=== PATIENT | female | born 1960 | race Caucasian/White ===

== ENCOUNTER 2016-12-17 10:37 | Inpatient (IN) | payer MEDICARE, MEDICAID ==
[~2016-12-17] VITALS: Ht 160 cm; Wt 51.0 kg
[~2016-12-17 10:37] MED LIST: AMOXICILLIN500 MG PO; ANTIVERT12.5 MG PO; ASPIRIN325 M1 OR; AUGMENTIN875 MG OR; AZITHROMYCIN250 MG PO; BENZTROPINE0.5 MG PO; CHILD'S ASA81 MG OR; CIPRO500 MG OR; FLUOXETINE20 MG PO; GABAPENTIN100 MG PO; GABAPENTIN300 MG PO; HALOPERIDOL5 MG PO; INVEGA3 MG PO; INVEGA6 MG PO; MEDDOSEPAK PO; NAPROSYN500 MG OR; NO HOME MEDS; PAXIL30 MG PO; PERCOCET 5/325M1 TAB OR; PROAIR HFA IN; PROTONIX40 MG OR; PROVENTIL HFA IN; PROZAC20 MG PO; PYRIDIUM100 MG OR; REGLAN5 MG OR; TRAZODONE100 MG PO; TRAZODONE50 MG PO; TRILEPTAL150 M1 PO; ULTRAM50 M1 PO; ULTRAM50 MG OR; VICOPROFEN PO
--- NOTE | 2016-12-17 10:40 | NUR ---
PT TO ROOM 12 VIA WHEELCHAIR.
[2016-12-17] MEDS ORDERED: TRAZODONE50 MG PO (11:30)
[2016-12-17] MEDS ORDERED: Levaquin PO (11:31)
[2016-12-17] MEDS ORDERED: SEROQUEL25 MG PO (11:31)
[2016-12-17] MEDS ORDERED: GABAPENTIN100 MG PO (11:32)
[2016-12-17] MEDS ORDERED: DUONEB IN (11:34)
[2016-12-17] MEDS ORDERED: LACTULOSE PO (11:35)
[2016-12-17] MEDS ORDERED: SYMBICORT 80-4.5MCG IN (11:36)
[2016-12-17] MEDS ORDERED: FLUOXETINE10 M2 PO (11:37)
--- NOTE | 2016-12-17 11:37 | NUR ---
PT ARRIVES TO ROOM, NOW WITH IV ESTABLISHED, BLOOD DRAWN, EKG DONE.
[2016-12-17] MEDS ORDERED: MIRTAZAPINE15 MG PO (11:38)
[2016-12-17] MEDS ORDERED: BENZTROPINE0.5 MG PO (11:39)
[2016-12-17 11:44] LABS: HEMATOCRIT 37.8 % (37.0-47.0); HEMOGLOBIN 12.9 g/dl (12.0-16.0); IMMATURE GRANULOCYTES 0.5 % (0.0-1.0); MEAN CELL VOLUME 95.2 fL CALC (80.0-100.0); MEAN CORPUSCULAR HGB 32.5 pG CALC (26.0-32.0); MEAN CORPUSCULAR HGB CONC 34.1 g/L CALC (32.0-36.0); NEUT# 7.56 thou/uL (2.00-7.15); RED BLOOD COUNT 3.97 mill/uL (4.20-5.60)
[2016-12-17 11:58] LABS: ALBUMIN 3.7 g/dL (3.2-5.0); ALKALINE PHOSPHATASE 95 u/l (38-126); ANION GAP 14 (6-22 (CALC)); BILIRUBIN, TOTAL 0.6 mg/dL (0.0-1.4); BUN 8 mg/dL (7-17); BUN/CREATININE RATIO 14 (12-20 (CALC)); CALCIUM 9.1 mg/dL (8.4-10.2); CARBON DIOXIDE 24 mmol/l (22-30); CHLORIDE 103 mmol/l (95-108); CREATININE 0.6 mg/dL (0.5-1.0); GFR > 60 ML/MIN (>=60 (CALC)); GFR FOR AFR.AMER. > 60 ML/MIN (>=60 (CALC)); GLUCOSE 89 mg/dL (65-105); POTASSIUM 3.8 mmol/l (3.5-5.1); SGOT/AST 23 u/l (14-36); SGPT/ALT 20 u/l (9-52); SODIUM 137 mmol/l (137-146); TOTAL PROTEIN 7.1 g/dL (6.3-8.2)
[2016-12-17 11:59] LABS: INFLUENZA A NONE DETECTED (NONE DETECT); INFLUENZA B NONE DETECTED (NONE DETECT)
[2016-12-17 11:59] LABS: PROTHROMBIN TIME 10.6 SECONDS (9.0-12.5)
[2016-12-17 12:09] LABS: MYOGLOBIN 38 ng/mL (0 - 62)
[2016-12-17 14:22] LABS: URINE BILIRUBIN - DIPSTICK NEGATIVE (NEGATIVE); URINE BLOOD DIPSTICK NEGATIVE (NEGATIVE); URINE CLARITY CLEAR; URINE COLOR YELLOW; URINE GLUCOSE - DIPSTICK NEGATIVE (NEGATIVE); URINE KETONE TRACE mg/dL (NEGATIVE); URINE LEUK ESTERASE NEGATIVE (NEGATIVE); URINE NITRITE - DIPSTICK NEGATIVE (Negative); URINE PH 5.5 (4.5-8.0); URINE PROTEIN - DIPSTICK TRACE mg/dL (NEG-TRACE)
--- NOTE | 2016-12-17 14:42 | NUR ---
REPORT CALLED TO CHELSEY ARZOLA, PT TO FLOOR SOON.
--- NOTE | 2016-12-17 15:15 | NUR ---
PT ARRIVED TO FLOOR AT THIS TIME VIA WC ACCOMPANIED BY RADHA RN; PT AMB TO SCALE AND BED WITH STEADY; PT ORIENTED TO ROOM AND CALL LIGHT SYSTEM; PT DENIES ANY PAIN; EXERTIONAL SOB NOTED; NON-PRODUCTIVE COUGH NOTED; ASSESSMENT COMPLETED; IVF INFUSING TO #20 TO LAC; IV SITE APPEARS HEALTHY; O2 NC IN PLACE; PT DENIES ANY OTHER NEEDS AT THIS TIME; CALL LIGHT WITHIN REACH; WILL CONTINUE TO MONITOR
--- NOTE | 2016-12-17 15:20 | NUR ---
PT TAKEN TO ROOM 272 WITHOUT INCIDENT.
[2016-12-17 15:21] VITALS: BP 106/67
[2016-12-17 18:35] LABS: BARBITURATES NEGATIVE (NEGATIVE); COCAINE NEGATIVE (NEGATIVE); METHADONE NEGATIVE (NEGATIVE); OXCYCODONE NEGATIVE (NEGATIVE); TETRAHYDROCANNABIONOL POSITIVE (NEGATIVE); TRICYLIC ANTIDEPRESSANTS NEGATIVE (NEGATIVE)
[2016-12-17 19:26] VITALS: BP 112/60
--- NOTE | 2016-12-17 19:30 | NUR ---
PATIENT RESTING IN BED ON FIRST ROUNDS-AWAKE ALERT AND ORIENTEDX3 WITH NO COMPLAINTS AT THIS TIME. PATIENT WITH NON-PRODUCTIVE COUGH/ IV SITE TO LEFT AC WITH IVF 1/2NS PATENT AND INFUSING AT 125CC/HR. SITE APPEARS HEALTHY AT THIS TIME. PATIENT UP TO THE BR TO VOID HUDSON URINE. PATIENT WITH O2 VIA NASAL CANNULA IN PLACE AT 2LPM. SAFETY PRECAUTIONS REINFORCED. CALL LIGHT IN REACH. WILL CONT TO MONITOR.
[2016-12-17 23:55] VITALS: BP 108/58
--- NOTE | 2016-12-18 01:29 | NUR ---
PATIENT APPEARS SLEEPING AT THIS TIME WITH O2 VIA NASAL CANNULA IN PLACE. IVF INFUSING AT 125CC/HR. CALL LIGHT IN REACH. WILL CONT TO MONITOR.
--- NOTE | 2016-12-18 04:02 | NUR ---
APPEARS SLEEPING AT THIS TIME WITH EYES CLOSED. CALL LIGHT IN REACH. WILL CONT TO MONITOR.
[2016-12-18 04:28] VITALS: BP 109/61
[2016-12-18 05:53] LABS: HEMOGLOBIN 11.5 g/dl (12.0-16.0); IMMATURE GRANULOCYTES 0.6 % (0.0-1.0); MEAN CELL VOLUME 95.9 fL CALC (80.0-100.0); MEAN CORPUSCULAR HGB 33.4 pG CALC (26.0-32.0); MEAN CORPUSCULAR HGB CONC 34.8 g/L CALC (32.0-36.0); NEUT# 6.62 thou/uL (2.00-7.15); RED BLOOD COUNT 3.44 mill/uL (4.20-5.60); RED CELL DISTRI WIDTH 13.8 % (11.5-15.5)
[2016-12-18 06:27] LABS: ANION GAP 11 (6-22 (CALC)); BUN 8 mg/dL (7-17); BUN/CREATININE RATIO 13 (12-20 (CALC)); CALCIUM 8.3 mg/dL (8.4-10.2); CARBON DIOXIDE 23 mmol/l (22-30); CHLORIDE 106 mmol/l (95-108); CREATININE 0.6 mg/dL (0.5-1.0); GFR > 60 ML/MIN (>=60 (CALC)); GFR FOR AFR.AMER. > 60 ML/MIN (>=60 (CALC)); GLUCOSE 78 mg/dL (65-105); SODIUM 135 mmol/l (137-146)
--- NOTE | 2016-12-18 07:00 | NUR ---
DR. GALVEZ IN TO SEE PT; PLAN OF CARE DISCUSSED
[2016-12-18 08:54] VITALS: BP 100/64
--- NOTE | 2016-12-18 09:24 | NUR ---
PT TO RADIOLOGY VIA WC ACCOMPANIED BY STAFF
--- NOTE | 2016-12-18 09:45 | NUR ---
PT RETURN FROM RADIOLOGY VIA WC ACCOMPANIED BY STAFF; TO BED WITHOUT DIFFICULTY; NO COMPLAINTS VOICED; CALL RICHARDS WITHIN REACH; WILL CONTINUE TO MONITOR
--- NOTE | 2016-12-18 10:26 | NUR ---
PT TO SHOWER; NO COMPLAINTS VOICED; CALL RICHARDS WITHIN REACH; WILL CONTINUE TO MONITOR
[2016-12-18 12:24] VITALS: BP 115/75
--- NOTE | 2016-12-18 13:18 | NUR ---
PT WATCHING TV; DENIES PAIN; ACCOUNTS SPECIALIST COUGH NOTED; CALL RICHARDS WITHIN REACH; WILL CONTINUE TO MONITOR.
--- NOTE | 2016-12-18 16:00 | NUR ---
PT MEDICATED FOR C/O ALVARADO; IVF INFUSING WELL; CALL RICHARDS WITHIN REACH; WILL CONTINUE TO MONITOR.
[2016-12-18 16:11] VITALS: BP 106/60
--- NOTE | 2016-12-18 17:54 | NUR ---
PT DENIES PAIN; CALL RICHARDS WITHIN REACH; WILL CONTINUE TO MONITOR.
[2016-12-18 19:38] VITALS: BP 108/70
--- NOTE | 2016-12-18 20:00 | NUR ---
PATIENT RESTING IN BED AT THIS TIME AWAKE ALERT AND ORIENTEDX3 WITH O2 VIA NASAL CANNULA IN PLACE AT 2LPM. PATIENT CONT WITH NON-PRODUCTIVE COUGH. PATIENT WITH DIMINISHED BS THROUGHOUT. PATIENT WITH IV SITE TO RIGHT FOREARM WITH IVF 1/2NS PATENT AND INFUSING AT 125CC/HR. SITE APPEARS HEALTHY AT THIS TIME. PATIENT STATES NO BM TODAY BUT IS VOIDING IN BR WITHOUT ANY DIFFICULTY. SAFETY PRECAUTIONS REINFORCED. PATIENT PROVIDED WITH COFFEE PER PATIENT REQUEST. CALL LIGHT IN REACH. WILL CONT TO MONITOR.
[2016-12-18 23:40] VITALS: BP 117/63
--- NOTE | 2016-12-19 00:05 | NUR ---
PATIENT APPEARS SLEEPING WITH O2 VIA NASAL CANNULA IN PLACE. IVF PATENT AND INFUSING AT 125CC/HR. CALL LIGHT IN REACH. WILL CONT TO MONITOR.
--- NOTE | 2016-12-19 04:00 | NUR ---
PATIENT APPEARS SLEEPING AT THIS TIME WITH EYES CLOSED. O2 VIA NASAL CANNULA IN PLACE. IVF PATENT AND INFSUING AT 125CC/HR. CALL LIGHT IN REACH. WILL CONT TO MONITOR.
[2016-12-19 04:20] VITALS: BP 154/90
[2016-12-19] MEDS ORDERED: Levaquin PO (06:51)
[2016-12-19] MEDS ORDERED: VANTIN200 M1 PO (07:37)
[2016-12-19] MEDS ORDERED: OXY1 (07:44)
--- NOTE | 2016-12-19 07:52 | NUR ---
ASSESSMENT IS COMPLETED: IV SITE IS FREE FROM REDNESS OR EDEMA. O2 @ 2LITERS WITH NC. CONTINUE TO OSBERVE AND MONITOR.
[2016-12-19] MEDS ORDERED: CHLORASEPTI MT (09:38)
--- NOTE | 2016-12-19 12:00 | NUR ---
PT IS AMBULATING IN THE HALLWAY WITH NO DISTRESS NOTED. IV SITE IS FREE FROM REDNESS OR EDEMA.
--- NOTE | 2016-12-19 14:09 | NUR ---
DISCHARGE INSTRUCTIONS GIVEN IV SITE DISCONTINUED CATHETER INTACT. FAMILY CALLED PT AND PICKED UP PT FROM DOWNSTAIRS.
--- NOTE | 2016-12-19 14:10 | NUR ---
Discharge instructions given. Patient verbalizes understanding of same. Discharged in stable condition via Wheelchair to Home with family. All belongings sent with pt.
--- NOTE | 2016-12-22 15:13 | NUR ---
PHARMACY MEDICATION FOLLOW-UP Patient was seen in ED on 12/17/16 Cultures were reviewed from: Blood Patient was discharged with Rx for:VANTIN C&S report came back with No Growth PLAN: Recommended: No Change Comment: PNEUMONIA INPATIENT D/C'D WITH RX FOR VANTIN
== END 2016-12-19 14:09 | disposition home health service (06) | DRG 195 ==
LOC: ENPENDDIS → ED 10:37 → ED-I 13:30 → ED 14:11 → MS2 14:12
PROVIDERS: Emergency Medicine; ADMIT Internal Medicine; ATTEND Internal Medicine
DX: J18.9 Pneumonia, unspecified organism (principal); F20.9 Schizophrenia, unspecified; F32.9 Major depressive disorder, single episode, unspecified; F17.210 Nicotine dependence, cigarettes, uncomplicated; F41.9 Anxiety disorder, unspecified; G24.01 Drug induced subacute dyskinesia; T50.905S Adverse effect of unspecified drugs, medicaments and biological substances, sequela; I25.2 Old myocardial infarction; R29.810 Facial weakness; Z86.73 Personal history of transient ischemic attack (TIA), and cerebral infarction without residual deficits; Z91.14 Patient's other noncompliance with medication regimen
CPT/HCPCS: J1650; Q9967

== ENCOUNTER 2017-02-10 14:50 | Emergency (ER) | payer MEDICARE, MEDICAID ==
[~2017-02-10] VITALS: Ht 160 cm; Wt 52.4 kg
[~2017-02-10 14:50] MED LIST changes: +CHLORASEPTI MT; +DUONEB IN; +FLUOXETINE10 M2 PO; +LACTULOSE PO; +Levaquin PO; +MIRTAZAPINE15 MG PO; +OXY1; +SEROQUEL25 MG PO; +SYMBICORT 80-4.5MCG IN; +VANTIN200 M1 PO
[2017-02-10] MEDS ORDERED: TRILEPTAL300 M1 PO (15:13)
[2017-02-10] MEDS ORDERED: ATROVENT H17 MCG/ACT IN (15:15)
[2017-02-10] MEDS ORDERED: MIRTAZAPINE45 M2 PO (15:17)
[2017-02-10] MEDS ORDERED: SEROQUEL100 MG PO (15:18)
[2017-02-10] MEDS ORDERED: LIDOCAINE22 EX (16:10)
[2017-02-10 16:20] VITALS: BP 114/64
== END 2017-02-10 16:20 | disposition home or self-care (01) ==
LOC: ED 14:50
DX: K13.70 Unspecified lesions of oral mucosa (principal)

== ENCOUNTER 2017-06-08 11:37 | Emergency (ER) | payer MEDICARE, MEDICAID ==
[~2017-06-08] VITALS: Ht 160 cm; Wt 51.0 kg
[~2017-06-08 11:37] MED LIST changes: +ATROVENT H17 MCG/ACT IN; +LIDOCAINE22 EX; +MIRTAZAPINE45 M2 PO; +SEROQUEL100 MG PO; +TRILEPTAL300 M1 PO
[2017-06-08] MEDS ORDERED: AMOXICILLIN500 M2 PO (11:58)
[2017-06-08 12:00] VITALS: BP 124/82
[2017-06-08] MEDS ORDERED: TRAZODONE50 MG PO (12:04)
[2017-06-08] MEDS ORDERED: QUETIAPINE FUM100 MG PO (12:05)
[2017-06-08] MEDS ORDERED: OXCARBAZEPINE300 MG PO (12:08)
[2017-06-08] MEDS ORDERED: GABAPENTIN400 M2 PO (12:08)
[2017-06-08] MEDS ORDERED: SYMBICORT1 AE1 IN (12:09)
[2017-06-08] MEDS ORDERED: BENZTROPINE1 MG PO (12:09)
[2017-06-08] MEDS ORDERED: HALDOL5 MG PO (12:09)
[2017-06-08] MEDS ORDERED: FLUOXETINE HCL40 MG PO (12:09)
== END 2017-06-08 12:00 | disposition home or self-care (01) ==
LOC: ED 11:37
DX: H66.91 Otitis media, unspecified, right ear (principal); I25.2 Old myocardial infarction; J44.9 Chronic obstructive pulmonary disease, unspecified; F32.9 Major depressive disorder, single episode, unspecified; F20.9 Schizophrenia, unspecified; F41.9 Anxiety disorder, unspecified; F17.210 Nicotine dependence, cigarettes, uncomplicated

== ENCOUNTER 2017-07-19 09:51 | Emergency (ER) | payer MEDICARE ==
[~2017-07-19] VITALS: Ht 160 cm; Wt 50.0 kg
[~2017-07-19 09:51] MED LIST changes: +AMOXICILLIN500 M2 PO; +BENZTROPINE1 MG PO; +FLUOXETINE HCL40 MG PO; +GABAPENTIN400 M2 PO; +HALDOL5 MG PO; +OXCARBAZEPINE300 MG PO; +QUETIAPINE FUM100 MG PO; +SYMBICORT1 AE1 IN
[2017-07-19] MEDS ORDERED: BACTRIM DS1 TAB PO (10:26)
[2017-07-19 10:36] VITALS: BP 139/74
== END 2017-07-19 10:45 | disposition home or self-care (01) ==
LOC: ED 09:51
DX: D17.21 Benign lipomatous neoplasm of skin and subcutaneous tissue of right arm (principal); L03.113 Cellulitis of right upper limb

== ENCOUNTER 2017-07-28 12:45 | Inpatient (IN) | payer MEDICARE ==
[~2017-07-28] VITALS: Ht 160 cm; Wt 45.0 kg
[~2017-07-28 12:45] MED LIST changes: +BACTRIM DS1 TAB PO
--- NOTE | 2017-07-28 12:45 | NUR ---
PATIENT TO ROOM 9 VIA EMS IN STABLE CONDITION, MD AT BEDSIDE.
--- NOTE | 2017-07-28 12:55 | NUR ---
PATIENT BP 68/50. MD NOTIFIED PATIENT PLACED IN REVERSE TRENDELENBERG POSITION AND VERBAL ORDER RECIEVED FOR 1 L OF NS.
--- NOTE | 2017-07-28 13:17 | NUR ---
IV FLUIDS RUNNING WITH NO DIFFICUTLY. 2ND IV INITIATED. BP NOW 91/40, HR 88, SAO2 99% ON ROOM AIR. MM DRY, PT ALSO REPORTING CP STARTING A FEW HOURS EARLIER. DENIES ANY NAUSEA OR DIAPHORESIS. CP IS MID-STERNAL AND DOES NOT RADIATE. PT REPORTS SMOKING METH 4 DAYS PRIOR AND DENIES ANY DRUG USE TODAY. PATIENT AWARE OF PLAN OF CARE, WILL CONTINUE TO MONITOR.
[2017-07-28 13:18] LABS: HEMATOCRIT 35.6 % (37.0-47.0); HEMOGLOBIN 12.4 g/dl (12.0-16.0); IMMATURE GRANULOCYTES 0.3 % (0.0-1.0); MEAN CORPUSCULAR HGB 33.8 pG CALC (26.0-32.0); MEAN CORPUSCULAR HGB CONC 34.8 g/L CALC (32.0-36.0); NEUT# 5.81 thou/uL (2.00-7.15); RED BLOOD COUNT 3.67 mill/uL (4.20-5.60); RED CELL DISTRI WIDTH 15.8 % (11.5-15.5)
[2017-07-28 13:21] LABS: ANION GAP 14 (6-22 (CALC)); BUN 7 mg/dL (7-17); BUN/CREATININE RATIO 8 (12-20 (CALC)); CALCIUM 8.9 mg/dL (8.4-10.2); CARBON DIOXIDE 19 mmol/l (22-30); CHLORIDE 101 mmol/l (95-108); CREATININE 0.9 mg/dL (0.5-1.0); GFR > 60 ML/MIN (>=60 (CALC)); GFR FOR AFR.AMER. > 60 ML/MIN (>=60 (CALC)); GLUCOSE 85 mg/dL (65-105); SODIUM 129 mmol/l (137-146)
--- NOTE | 2017-07-28 14:15 | NUR ---
BP 89/49, MD AWARE. PATIENT REPORTS CP NOW 10/19. DENIES ANY SOB AT THIS TIME. WILL CONTINUE TO MONITOR.
[2017-07-28] MEDS ORDERED: FLUOXETINE10 M2 PO (14:45)
[2017-07-28] MEDS ORDERED: MIRTAZAPINE15 MG PO (14:45)
[2017-07-28 15:08] LABS: URINE BILIRUBIN - DIPSTICK NEGATIVE (NEGATIVE); URINE BLOOD DIPSTICK NEGATIVE (NEGATIVE); URINE CLARITY CLEAR; URINE COLOR YELLOW; URINE GLUCOSE - DIPSTICK NEGATIVE (NEGATIVE); URINE KETONE NEGATIVE (NEGATIVE); URINE LEUK ESTERASE NEGATIVE (NEGATIVE); URINE NITRITE - DIPSTICK NEGATIVE (Negative); URINE PROTEIN - DIPSTICK NEGATIVE (NEG-TRACE); URINE SPECIFIC GRAVITY <=1.005; URINE UROBILINOGEN - DIPSTICK 0.2 E.U./dL (0.2)
--- NOTE | 2017-07-28 15:15 | NUR ---
IV FLUIDS INFUSING WITH NO DIFFICULTY. BP 92/56. AWARE. WILL CONITNUE TO MONITOR.
[2017-07-28 15:26] LABS: BARBITURATES NEGATIVE (NEGATIVE); COCAINE NEGATIVE (NEGATIVE); METHADONE NEGATIVE (NEGATIVE); TETRAHYDROCANNABIONOL POSITIVE (NEGATIVE); TRICYLIC ANTIDEPRESSANTS NEGATIVE (NEGATIVE)
[2017-07-28 15:27] LABS: OXCYCODONE NEGATIVE (NEGATIVE)
--- NOTE | 2017-07-28 15:59 | NUR ---
FAILED ATTEMPT TO CALL REPORT. NURSE WILL CALL BACK.
--- NOTE | 2017-07-28 16:01 | NUR ---
PATIENT TALKING ON PHONE TO SON. PATIENT RESTING COMFORTABLY IN STRETCHER. UNEMPLOYMENT INSPECTORSUNNY RUSH TOOK PATIENT TO BATHROOM VIA WHEELCHAIR INSTABLE CONDITION.
--- NOTE | 2017-07-28 16:30 | NUR ---
NURSE NOT AVAILABLE TO TAKE REPORT AT THIS TIME.
--- NOTE | 2017-07-28 16:53 | NUR ---
REPORT CALLED TO NESS MARISCAL IN [place].
--- NOTE | 2017-07-28 17:10 | NUR ---
Admission Note Report Given to: LIODA Transported by: Wheelchair X Stretcher Transported with: X Nurse Transporter X Patent IV X O2 X Maintenance Groundskeeper PATIENT TRANSPORTED TO ROOM 271 IN STABLE CONDITION.
--- NOTE | 2017-07-28 17:18 | NUR ---
REPORT RECEIVED FROM CLEMENCIA IN ED, PT ARRIVED ON UNIT VIA STRETCHER AND AMBULATED WITH UNSTEADY GAIT AND STAFF ASSIST TO BED, ALERT AND ORIENTED X 2, DENIES PAIN AT THIS TIME STATING PAIN IN CHEST WENT AWAY AFTER TAKING 4 BABY ASPIRINS. 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 SHE IS ABLE TO KEEP STILL FOR SORT PERIODS WHEN ASKED TO BE STILL FOR VITAL SIGNS BUT MOTION IMMEDIATELY CONTINUES AFTER PROCEDURE. VERY UNKEMPT WITH DIRTY FEET, HANDS AND CLOTHES. ORIENTED TO ROOM AND CALL RICHARDS, SET UP FOR MEAL NOW, WILL CONTINUE TO MONITOR AND ASSESS.
--- NOTE | 2017-07-28 17:59 | NUR ---
O2 SAT = 93% ON R/A
--- NOTE | 2017-07-28 19:00 | NUR ---
RECEIVED REPORT FROM NESS SANTOYO. PATIENT SITTING UP IN BED AND APPEARS NOT TO BE IN ANY APPARENT DISTRESS OR DISCOMFORT. DENIES PAIN. VISITORS AT BED SIDE.
--- NOTE | 2017-07-28 19:00 | NUR ---
RECEIVED CHANGE OF SHIFT REPORT FRON NESS MARISCAL. PATIENT LYING IN BED AND APPEARS NOT TO BE IN ANY APPARENT ACUTE DISTRESS OR DISCOMFORT. DENIES PAIN. WILL CONTINUE TO MONITOR.
[2017-07-28 19:15] VITALS: BP 80/50
[2017-07-28 23:15] VITALS: BP 97/52
--- NOTE | 2017-07-29 | NUR ---
PATIENT AWAKE AND SITTING UP IN BED. NO VOICED COMPLAINTS AT THIS TIME.
[2017-07-29 03:56] VITALS: BP 93/57
--- NOTE | 2017-07-29 04:00 | NUR ---
NO APPARENT ACCUTE CHANGES NOTED IN PATIENT'S CONDITION.
[2017-07-29 05:37] LABS: ANION GAP 9 (6-22 (CALC)); BUN 8 mg/dL (7-17); BUN/CREATININE RATIO 11 (12-20 (CALC)); CALCIUM 8.5 mg/dL (8.4-10.2); CALCULATED LDLCHOLESTEROL 89 mg/dL (62-129 (CALC)); CARBON DIOXIDE 22 mmol/l (22-30); CHOLESTEROL HDL RATIO 2.8 (<4.4 (CALC)); CREATININE 0.7 mg/dL (0.5-1.0); GFR > 60 ML/MIN (>=60 (CALC)); GFR FOR AFR.AMER. > 60 ML/MIN (>=60 (CALC)); GLUCOSE 105 mg/dL (65-105); HDL CHOLESTEROL 55 mg/dL (>=40); MAGNESIUM 1.9 mg/dL (1.6-2.3); POTASSIUM 4.5 mmol/l (3.5-5.1); SODIUM 137 mmol/l (137-146); TOTAL CHOLESTEROL 157 mg/dl (0-199); TRIGLYCERIDES REFLEX TO dLDL 62 mg/dl (30-149); VLDL CHOLESTROL 12 mg/dl (2-49 (CALC))
[2017-07-29 05:47] LABS: CHLORIDE 111 mmol/l (95-108)
--- NOTE | 2017-07-29 07:00 | NUR ---
RECEIVED BEDSIDE REPORT FROM ROBBIE ARZOLA. RESTING IN BED WITH EYES CLOSED, AWAKENS EASILY. RESPS EVEN AND UNLABORED ON O2 VIA NC, TELE MONTIOR IN PLACE. #20 RFA INFUSING WITHOUT DIFFICULTY, SITE APPEARS HEALTHY. DENIES PAIN OR DISCOMFORT. PLAN OF CARE DISCUSSED. SAFETY PRECAUTIONS REOINFORCED. BED IN LOWEST POSITION WITH WHEELS LOCKED. CALL LIGHT WITHIN REACH. WILL CONTINUE TO MONITOR.
[2017-07-29 07:32] VITALS: BP 105/58
--- NOTE | 2017-07-29 10:20 | NUR ---
DR FARLEY IN WITH PT, AWAITING NEW ORDERS.
--- NOTE | 2017-07-29 10:45 | NUR ---
O2 SATURATION AT REST 94% ON ROOM AIR, WHILE ABULATING FOR 5 MINUTES WITHOUT O2 SATURATION 96%. FINAL RESTING O2 SATURATION 96% ON ROOM AIR. PT TOLERATED WELL.
[2017-07-29 11:25] VITALS: BP 102/64
--- NOTE | 2017-07-29 12:00 | NUR ---
IN HIGH FOWLERS EATING LUNCH. RESPS EVEN AND UNLABORED ON ROOM AIR, TELE MONITOR IN PLACE. DENIES PAIN OR DISCOMFORT. CALL LIGHT WITHIN REACH. WILL CONTINUE TO MONITOR.
[2017-07-29 15:07] VITALS: BP 102/50
--- NOTE | 2017-07-29 16:07 | NUR ---
RESTING IN BED WATCHING TV. RESPS EVEN AND UNLABORED ON ROOM AIR, TELE MONITOR IN PLACE. DENIES PAIN OR DISCOMFORT. PO FLUIDS OFFERED. #20 RFA INFUSING WITHIN DIFFICULTY, SITE APPEARS HEALTHY. CALL LIGHT WITHIN REACH. ENCOURAGED PT TO CALL FOR ANY NEEDS.
--- NOTE | 2017-07-29 19:00 | NUR ---
RECEIVED CHANGE OF SHIFT REPORT FROM NESS HIGH. PATIENT UP AT SEDSIDE AND APPEARS NOT TO BE IN ANY APPARENT ACUTE DISTRESS OR DISCOFORT. DENIES PAIN. DENIES SOB AT THIS TIME. WILL CONTINUE TO MONITOR.
[2017-07-29 20:00] VITALS: BP 92/59
--- NOTE | 2017-07-30 | NUR ---
PATIENT RESTING QUIETLY AT THIS TIME. NO APPARENT ACUTE DISTRESS NOTED. WILL CONTINUE TO MONITOR.
[2017-07-30 00:14] VITALS: BP 106/61
--- NOTE | 2017-07-30 04:00 | NUR ---
NO APPARENT ACUTE CHANGES NOTED IN PATIENT'S CONDITION.
[2017-07-30 04:25] VITALS: BP 106/71
[2017-07-30 06:08] LABS: HEMATOCRIT 34.3 % (37.0-47.0); HEMOGLOBIN 11.5 g/dl (12.0-16.0); MEAN CORPUSCULAR HGB 33.5 pG CALC (26.0-32.0); MEAN CORPUSCULAR HGB CONC 33.5 g/L CALC (32.0-36.0); RED BLOOD COUNT 3.43 mill/uL (4.20-5.60); RED CELL DISTRI WIDTH 16.5 % (11.5-15.5)
[2017-07-30 06:25] LABS: ANION GAP 11 (6-22 (CALC)); BUN 6 mg/dL (7-17); BUN/CREATININE RATIO 8 (12-20 (CALC)); CALCIUM 8.8 mg/dL (8.4-10.2); CARBON DIOXIDE 22 mmol/l (22-30); CHLORIDE 112 mmol/l (95-108); CREATININE 0.7 mg/dL (0.5-1.0); GFR > 60 ML/MIN (>=60 (CALC)); GFR FOR AFR.AMER. > 60 ML/MIN (>=60 (CALC)); GLUCOSE 99 mg/dL (65-105); POTASSIUM 4.2 mmol/l (3.5-5.1); SODIUM 141 mmol/l (137-146)
--- NOTE | 2017-07-30 07:00 | NUR ---
REPORT RECIEVED FROM NESS AVALOS. PT ASLEEP ON ENTRY. NO SIGNS OF DISTRESS NOTED. RESP EVEN AND UNLABORED. BED IN LOWEST POSITION. SAFETY PRECAUTIONS IN PLACE. WILL CONTINUE TO MONITOR. CALL LIGHT WITHIN REACH. TELE IN PLACE.
[2017-07-30 08:28] VITALS: BP 96/53
--- NOTE | 2017-07-30 09:15 | NUR ---
DR FARLEY VERBAL ORDER TO HOLD 0900 MEDS UNTIL EKG WAS COMPLETED.
[2017-07-30 11:21] VITALS: BP 102/60
--- NOTE | 2017-07-30 12:04 | NUR ---
DR FARLEY REVIEWED EKG. VERBAL ORDER TO ADMINISTER MEDS AT THIS TIME WITH EXCEPTION OF SOLU-MEDROL.
[2017-07-30] MEDS ORDERED: IPRATROPIU0.5 MG/3 M NEB (12:43)
[2017-07-30] MEDS ORDERED: DOXYCYCL HYC100 MG PO (12:43)
[2017-07-30] MEDS ORDERED: PREDNISONE10 MG PO (12:43)
--- NOTE | 2017-07-30 14:47 | NUR ---
Discharge instructions given. Patient verbalizes understanding of same. Discharged in stable condition via Ambulatory to Home with staff. All belongings sent with pt.
== END 2017-07-30 14:50 | disposition home or self-care (01) | DRG 191 ==
LOC: ED 12:45 → ED-I 15:25 → ED 15:41 → MS2 15:42
PROVIDERS: Family Medicine; Internal Medicine; ADMIT Internal Medicine; ATTEND Internal Medicine
PROC: 3E0234Z Introduction of Serum, Toxoid and Vaccine into Muscle, Percutaneous Approach (ICD-10-PCS; principal; 2017-07-29)
DX: J44.1 Chronic obstructive pulmonary disease with (acute) exacerbation (principal); E87.2 Acidosis; E87.1 Hypo-osmolality and hyponatremia; J44.0 Chronic obstructive pulmonary disease with (acute) lower respiratory infection; J20.9 Acute bronchitis, unspecified; F20.9 Schizophrenia, unspecified; F32.9 Major depressive disorder, single episode, unspecified; F17.210 Nicotine dependence, cigarettes, uncomplicated; F10.10 Alcohol abuse, uncomplicated; G24.01 Drug induced subacute dyskinesia; F15.10 Other stimulant abuse, uncomplicated; F12.10 Cannabis abuse, uncomplicated; Z86.73 Personal history of transient ischemic attack (TIA), and cerebral infarction without residual deficits; Z23 Encounter for immunization; Z91.19 Patient's noncompliance with other medical treatment and regimen
CPT/HCPCS: Q9967

== ENCOUNTER 2017-08-25 17:25 | Emergency (ER) | payer MEDICARE ==
[~2017-08-25] VITALS: Ht 160 cm; Wt 50.4 kg
[~2017-08-25 17:25] MED LIST changes: +DOXYCYCL HYC100 MG PO; +IPRATROPIU0.5 MG/3 M NEB; +PREDNISONE10 MG PO
[2017-08-25] MEDS ORDERED: MOTRIN400 MG PO (17:58)
[2017-08-25 18:11] VITALS: BP 107/58
[2017-08-26] MEDS ORDERED: MELOXICAM7.5 MG PO (09:53)
== END 2017-08-25 18:10 | disposition home or self-care (01) ==
LOC: ED 17:25
DX: M79.641 Pain in right hand (principal); J44.9 Chronic obstructive pulmonary disease, unspecified; F32.9 Major depressive disorder, single episode, unspecified; F20.9 Schizophrenia, unspecified; F41.9 Anxiety disorder, unspecified; F17.210 Nicotine dependence, cigarettes, uncomplicated; I25.2 Old myocardial infarction

== ENCOUNTER 2017-08-26 08:15 | Emergency (ER) | payer MEDICARE ==
[~2017-08-26] VITALS: Ht 160 cm; Wt 52.0 kg
[~2017-08-26 08:15] MED LIST changes: +MOTRIN400 MG PO
[2017-08-26] MEDS ORDERED: MELOXICAM7.5 MG PO (09:53)
[2017-08-26 10:00] VITALS: BP 119/74
== END 2017-08-26 10:00 | disposition home or self-care (01) ==
LOC: ED 08:15
DX: M79.641 Pain in right hand (principal); I25.2 Old myocardial infarction; J44.9 Chronic obstructive pulmonary disease, unspecified; F32.9 Major depressive disorder, single episode, unspecified; F41.9 Anxiety disorder, unspecified; F20.9 Schizophrenia, unspecified; F17.210 Nicotine dependence, cigarettes, uncomplicated

== ENCOUNTER 2017-11-14 10:32 | Emergency (ER) | payer MEDICARE, MEDICAID ==
[~2017-11-14] VITALS: Ht 160 cm; Wt 5.0 kg
[~2017-11-14 10:32] MED LIST changes: +MELOXICAM7.5 MG PO
[2017-11-14] MEDS ORDERED: PREDNISONE50 MG PO (11:09)
[2017-11-14] MEDS ORDERED: ZPAK PO (11:09)
[2017-11-14] MEDS ORDERED: FAMOTIDINE20 M1 PO (11:12)
[2017-11-14] MEDS ORDERED: COMBIVENT RESPIMAT IN (11:12)
[2017-11-14 11:25] VITALS: BP 114/65
== END 2017-11-14 11:25 | disposition home or self-care (01) ==
LOC: ED 10:32
DX: J44.1 Chronic obstructive pulmonary disease with (acute) exacerbation (principal); F17.210 Nicotine dependence, cigarettes, uncomplicated; R05 Cough; R06.02 Shortness of breath

== ENCOUNTER 2018-03-26 12:25 | Emergency (ER) | payer MEDICARE, MEDICAID ==
[~2018-03-26] VITALS: Ht 160 cm; Wt 48.6 kg
[~2018-03-26 12:25] MED LIST changes: +COMBIVENT RESPIMAT IN; +FAMOTIDINE20 M1 PO; +PREDNISONE50 MG PO; +ZPAK PO
[2018-03-26 13:21] LABS: IMMATURE GRANULOCYTES 0.2 % (0.0-5.0); MEAN CORPUSCULAR HGB 31.6 pG CALC (26.0-32.0); NEUT# 2.58 thou/uL (2.00-7.15); RED BLOOD COUNT 4.56 mill/uL (4.20-5.60); RED CELL DISTRI WIDTH 13.2 % (11.5-15.5)
[2018-03-26 13:24] LABS: HEMOGLOBIN 14.4 g/dl (12.0-16.0)
[2018-03-26 13:25] LABS: HEMATOCRIT 42.4 % (37.0-47.0)
[2018-03-26 13:37] LABS: ALBUMIN 3.8 g/dL (3.2-5.0); ALKALINE PHOSPHATASE 62 u/l (38-126); ANION GAP 10 (6-22 (CALC)); BILIRUBIN, TOTAL 0.3 mg/dL (0.0-1.4); BUN 10 mg/dL (7-17); BUN/CREATININE RATIO 16 (12-20 (CALC)); CARBON DIOXIDE 25 mmol/l (22-30); CHLORIDE 106 mmol/l (95-108); CREATININE 0.6 mg/dL (0.5-1.0); GFR > 60 ML/MIN (>=60 (CALC)); GFR FOR AFR.AMER. > 60 ML/MIN (>=60 (CALC)); POTASSIUM 3.8 mmol/l (3.5-5.1); SGOT/AST 19 u/l (14-36); SGPT/ALT 22 u/l (9-52); SODIUM 138 mmol/l (137-146); TOTAL PROTEIN 6.6 g/dL (6.3-8.2)
[2018-03-26 13:48] LABS: BARBITURATES NEGATIVE (NEGATIVE); COCAINE NEGATIVE (NEGATIVE); METHADONE NEGATIVE (NEGATIVE); OXCYCODONE NEGATIVE (NEGATIVE); TETRAHYDROCANNABIONOL POSITIVE (NEGATIVE); TRICYLIC ANTIDEPRESSANTS NEGATIVE (NEGATIVE)
[2018-03-26] MEDS ORDERED: KEFLEX500 M1 PO (14:00)
[2018-03-26] MEDS ORDERED: TORADOL PO (14:00)
[2018-03-26 14:11] VITALS: BP 112/69
== END 2018-03-26 14:11 | disposition home or self-care (01) ==
LOC: ED 12:25
PROVIDERS: Emergency Medicine
DX: R59.0 Localized enlarged lymph nodes (principal); J44.9 Chronic obstructive pulmonary disease, unspecified; F31.9 Bipolar disorder, unspecified; F17.210 Nicotine dependence, cigarettes, uncomplicated

== ENCOUNTER 2018-04-15 08:55 | Emergency (ER) | payer MEDICARE, MEDICAID ==
[~2018-04-15] VITALS: Ht 160 cm; Wt 50.0 kg
[~2018-04-15 08:55] MED LIST changes: +KEFLEX500 M1 PO; +TORADOL PO
[2018-04-15] MEDS ORDERED: COMBIVENT RESPIMAT IN ×2 (09:59→11:56)
[2018-04-15 10:28] LABS: HEMATOCRIT 41.1 % (37.0-47.0); IMMATURE GRANULOCYTES 0.3 % (0.0-5.0); MEAN CELL VOLUME 92.8 fL CALC (80.0-100.0); MEAN CORPUSCULAR HGB 31.6 pG CALC (26.0-32.0); MEAN CORPUSCULAR HGB CONC 34.1 g/L CALC (32.0-36.0); NEUT# 4.93 thou/uL (2.00-7.15); RED BLOOD COUNT 4.43 mill/uL (4.20-5.60)
[2018-04-15 10:43] LABS: ALBUMIN 3.8 g/dL (3.2-5.0); ALKALINE PHOSPHATASE 74 u/l (38-126); BILIRUBIN, TOTAL 0.4 mg/dL (0.0-1.4); BUN 14 mg/dL (7-17); BUN/CREATININE RATIO 21 (12-20 (CALC)); CARBON DIOXIDE 25 mmol/l (22-30); CHLORIDE 105 mmol/l (95-108); CREATININE 0.7 mg/dL (0.5-1.0); GFR > 60 ML/MIN (>=60 (CALC)); GFR FOR AFR.AMER. > 60 ML/MIN (>=60 (CALC)); SGOT/AST 16 u/l (14-36); SGPT/ALT 28 u/l (9-52); SODIUM 139 mmol/l (137-146); TOTAL PROTEIN 6.4 g/dL (6.3-8.2)
[2018-04-15 10:46] LABS: ANION GAP 14 (6-22 (CALC)); POTASSIUM 4.7 mmol/l (3.5-5.1)
[2018-04-15 10:59] LABS: BARBITURATES NEGATIVE (NEGATIVE); COCAINE NEGATIVE (NEGATIVE); METHADONE NEGATIVE (NEGATIVE); OXCYCODONE NEGATIVE (NEGATIVE); TETRAHYDROCANNABIONOL POSITIVE (NEGATIVE); TRICYLIC ANTIDEPRESSANTS NEGATIVE (NEGATIVE)
[2018-04-15] MEDS ORDERED: MOBIC15 MG PO (11:48)
[2018-04-15 12:00] VITALS: BP 103/86
== END 2018-04-15 12:00 | disposition home or self-care (01) ==
LOC: ED 08:55
PROVIDERS: Emergency Medicine
DX: R51 Headache (principal); F17.210 Nicotine dependence, cigarettes, uncomplicated

== ENCOUNTER 2018-06-17 12:02 | Emergency (ER) | payer MEDICARE, MEDICAID ==
[~2018-06-17] VITALS: Ht 160 cm; Wt 48.6 kg
[~2018-06-17 12:02] MED LIST changes: +MOBIC15 MG PO
[2018-06-17] MEDS ORDERED: TRAZODONE50 MG PO (12:22)
[2018-06-17] MEDS ORDERED: CLEOCIN300 MG PO (12:22)
[2018-06-17] MEDS ORDERED: SERTRALINE HCL50 MG PO (12:23)
[2018-06-17] MEDS ORDERED: QUETIAPINE FUM100 MG PO (12:23)
[2018-06-17] MEDS ORDERED: DIVALPROEX SOD250 M1 PO (12:24)
[2018-06-17 12:25] VITALS: BP 104/67
== END 2018-06-17 12:25 | disposition home or self-care (01) ==
LOC: ED 12:02
DX: K04.7 Periapical abscess without sinus (principal)

== ENCOUNTER 2018-07-26 15:10 | Observation (INO) | payer MEDICARE, MEDICAID ==
[~2018-07-26] VITALS: Ht 157.5 cm; Wt 45.4 kg
[~2018-07-26 15:10] MED LIST changes: +CLEOCIN300 MG PO; +DIVALPROEX SOD250 M1 PO; +SERTRALINE HCL50 MG PO
[2018-07-26 15:37] LABS: HEMATOCRIT 45.2 % (37.0-47.0); HEMOGLOBIN 15.6 g/dl (12.0-16.0); IMMATURE GRANULOCYTES 0.4 % (0.0-5.0); MEAN CELL VOLUME 92.4 fL CALC (80.0-100.0); MEAN CORPUSCULAR HGB 31.9 pG CALC (26.0-32.0); MEAN CORPUSCULAR HGB CONC 34.5 g/L CALC (32.0-36.0); NEUT# 8.01 thou/uL (2.00-7.15); RED BLOOD COUNT 4.89 mill/uL (4.20-5.60); RED CELL DISTRI WIDTH 13.6 % (11.5-15.5)
[2018-07-26 15:59] LABS: ALKALINE PHOSPHATASE 85 u/l (38-126); ANION GAP 17 (6-22 (CALC)); BILIRUBIN, TOTAL 0.4 mg/dL (0.0-1.4); BUN 11 mg/dL (7-17); BUN/CREATININE RATIO 16 (12-20 (CALC)); CARBON DIOXIDE 21 mmol/l (22-30); CHLORIDE 102 mmol/l (95-108); CREATININE 0.7 mg/dL (0.5-1.0); GFR > 60 ML/MIN (>=60 (CALC)); GFR FOR AFR.AMER. > 60 ML/MIN (>=60 (CALC)); POTASSIUM 3.9 mmol/l (3.5-5.1); SGOT/AST 17 u/l (14-36); SODIUM 136 mmol/l (137-146); TOTAL PROTEIN 6.9 g/dL (6.3-8.2)
[2018-07-26 16:11] LABS: MYOGLOBIN 30 ng/mL (0 - 62)
[2018-07-26 16:14] LABS: URINE BILIRUBIN - DIPSTICK NEGATIVE (NEGATIVE); URINE BLOOD DIPSTICK TRACE-INTACT (NEGATIVE); URINE COLOR YELLOW; URINE GLUCOSE - DIPSTICK NEGATIVE (NEGATIVE); URINE KETONE TRACE mg/dL (NEGATIVE); URINE LEUK ESTERASE NEGATIVE (NEGATIVE); URINE NITRITE - DIPSTICK NEGATIVE (Negative); URINE PH 5.5 (4.5-8.0); URINE PROTEIN - DIPSTICK NEGATIVE (NEG-TRACE); URINE SPECIFIC GRAVITY <=1.005; URINE UROBILINOGEN - DIPSTICK 0.2 E.U./dL (0.2)
[2018-07-26 16:18] LABS: BARBITURATES NEGATIVE (NEGATIVE); COCAINE NEGATIVE (NEGATIVE); METHADONE NEGATIVE (NEGATIVE); OXCYCODONE NEGATIVE (NEGATIVE); TETRAHYDROCANNABIONOL NEGATIVE (NEGATIVE); TRICYLIC ANTIDEPRESSANTS NEGATIVE (NEGATIVE)
[2018-07-26 16:19] LABS: URINE CLARITY CLEAR
[2018-07-26 18:19] VITALS: BP 132/86
[2018-07-26 20:00] VITALS: BP 115/60
[2018-07-27 00:16] VITALS: BP 101/60
[2018-07-27 04:00] VITALS: BP 115/62
[2018-07-27 08:40] VITALS: BP 106/65
[2018-07-27 09:36] LABS: CHOLESTEROL HDL RATIO 3.1 (<4.4 (CALC)); MAGNESIUM 1.9 mg/dL (1.6-2.3)
[2018-07-27 11:18] VITALS: BP 123/62
[2018-07-27] MEDS ORDERED: AMOX/K CLAV875 M1 PO (14:57)
[2018-07-27] MEDS ORDERED: COMBIVENT RESPIMAT IN (15:14)
[2018-07-27 15:21] VITALS: BP 123/63
== END 2018-07-27 15:41 | disposition home or self-care (01) ==
LOC: ED 15:10 → ED-I 17:15 → ED 17:42 → MS2 17:43
PROVIDERS: Emergency Medicine; Nurse Practitioner Family; ADMIT Internal Medicine; ATTEND Internal Medicine
DX: R07.89 Other chest pain (principal); I25.10 Atherosclerotic heart disease of native coronary artery without angina pectoris; F31.9 Bipolar disorder, unspecified; K04.7 Periapical abscess without sinus; K02.9 Dental caries, unspecified; F41.9 Anxiety disorder, unspecified; J43.9 Emphysema, unspecified; R63.6 Underweight; F15.10 Other stimulant abuse, uncomplicated; F10.10 Alcohol abuse, uncomplicated; F17.210 Nicotine dependence, cigarettes, uncomplicated; Z68.1 Body mass index [BMI] 19.9 or less, adult; Z86.73 Personal history of transient ischemic attack (TIA), and cerebral infarction without residual deficits

== ENCOUNTER 2019-03-21 19:24 | Emergency (ER) | payer MEDICARE, MEDICAID ==
[~2019-03-21] VITALS: Ht 157.5 cm; Wt 46.0 kg
[~2019-03-21 19:24] MED LIST changes: +AMOX/K CLAV875 M1 PO
[2019-03-21 19:44] LABS: HEMATOCRIT 41.9 % (37.0-47.0); HEMOGLOBIN 14.4 g/dl (12.0-16.0); IMMATURE GRANULOCYTES 0.4 % (0.0-5.0); MEAN CELL VOLUME 94.6 fL CALC (80.0-100.0); MEAN CORPUSCULAR HGB 32.5 pG CALC (26.0-32.0); MEAN CORPUSCULAR HGB CONC 34.4 g/L CALC (32.0-36.0); NEUT# 3.57 thou/uL (2.00-7.15); RED BLOOD COUNT 4.43 mill/uL (4.20-5.60); RED CELL DISTRI WIDTH 14.6 % (11.5-15.5)
[2019-03-21 19:54] LABS: ALBUMIN 3.6 g/dL (3.2-5.0); ALKALINE PHOSPHATASE 48 u/l (38-126); BILIRUBIN, TOTAL 0.3 mg/dL (0.0-1.4); BUN 11 mg/dL (7-17); BUN/CREATININE RATIO 20 (12-20 (CALC)); CARBON DIOXIDE 20 mmol/l (22-30); CHLORIDE 113 mmol/l (95-108); CREATININE 0.6 mg/dL (0.5-1.0); ETHYL ALCOHOL 193 mg/dl (0-30); GFR > 60 ML/MIN (>=60 (CALC)); GFR FOR AFR.AMER. > 60 ML/MIN (>=60 (CALC)); MAGNESIUM 1.9 mg/dL (1.6-2.3); POTASSIUM 4.1 mmol/l (3.5-5.1); TOTAL PROTEIN 6.1 g/dL (6.3-8.2)
[2019-03-21 20:03] LABS: ANION GAP 14 (6-22 (CALC)); SGOT/AST 38 u/l (14-36); SODIUM 143 mmol/l (137-146)
[2019-03-21 20:51] LABS: MYOGLOBIN 20 ng/mL (0 - 62)
[2019-03-22 00:22] VITALS: BP 122/78
== END 2019-03-22 00:22 | disposition home or self-care (01) ==
LOC: ED 19:24
PROVIDERS: Emergency Medicine
DX: F10.129 Alcohol abuse with intoxication, unspecified (principal); F15.10 Other stimulant abuse, uncomplicated; J44.9 Chronic obstructive pulmonary disease, unspecified; F17.200 Nicotine dependence, unspecified, uncomplicated

== ENCOUNTER 2019-04-18 10:39 | Emergency (ER) | payer MEDICARE, MEDICAID ==
[~2019-04-18] VITALS: Ht 157.5 cm; Wt 45.4 kg
[2019-04-18] MEDS ORDERED: OLANZAPINE7.5 MG PO (10:56)
[2019-04-18] MEDS ORDERED: TRAZODONE HYDR150 MG PO (10:56)
[2019-04-18] MEDS ORDERED: QUETIAPINE FUM150 MG PO (10:57)
[2019-04-18] MEDS ORDERED: COMBIVENT RESPIMAT IN ×2 (10:58→12:58)
[2019-04-18 11:23] LABS: HEMATOCRIT 44.6 % (37.0-47.0); HEMOGLOBIN 15.2 g/dl (12.0-16.0); IMMATURE GRANULOCYTES 0.4 % (0.0-5.0); MEAN CELL VOLUME 95.9 fL CALC (80.0-100.0); MEAN CORPUSCULAR HGB 32.7 pG CALC (26.0-32.0); MEAN CORPUSCULAR HGB CONC 34.1 g/L CALC (32.0-36.0); NEUT# 5.59 thou/uL (2.00-7.15); RED BLOOD COUNT 4.65 mill/uL (4.20-5.60); RED CELL DISTRI WIDTH 13.9 % (11.5-15.5)
[2019-04-18 11:30] LABS: ALBUMIN 4.1 g/dL (3.2-5.0); ALKALINE PHOSPHATASE 63 u/l (38-126); BUN 8 mg/dL (7-17); BUN/CREATININE RATIO 15 (12-20 (CALC)); CHLORIDE 105 mmol/l (95-108); CREATININE 0.6 mg/dL (0.5-1.0); ETHYL ALCOHOL 0 mg/dl (0-30); GFR > 60 ML/MIN (>=60 (CALC)); GFR FOR AFR.AMER. > 60 ML/MIN (>=60 (CALC)); SGOT/AST 40 u/l (14-36); SODIUM 138 mmol/l (137-146); TOTAL PROTEIN 6.9 g/dL (6.3-8.2)
[2019-04-18 11:32] LABS: ANION GAP 10 (6-22 (CALC)); BILIRUBIN, TOTAL 0.7 mg/dL (0.0-1.4); CARBON DIOXIDE 27 mmol/l (22-30)
[2019-04-18 11:42] LABS: MYOGLOBIN 29 ng/mL (0 - 62)
[2019-04-18 12:35] LABS: URINE BILIRUBIN - DIPSTICK NEGATIVE (NEGATIVE); URINE BLOOD DIPSTICK TRACE-LYSED (NEGATIVE); URINE COLOR YELLOW; URINE GLUCOSE - DIPSTICK NEGATIVE (NEGATIVE); URINE KETONE NEGATIVE (NEGATIVE); URINE PH 6.5 (4.5-8.0); URINE PROTEIN - DIPSTICK NEGATIVE (NEG-TRACE); URINE UROBILINOGEN - DIPSTICK 0.2 E.U./dL (0.2)
[2019-04-18 12:36] LABS: URINE LEUK ESTERASE SMALL (NEGATIVE); URINE NITRITE - DIPSTICK POSITIVE (Negative)
[2019-04-18 12:39] LABS: BARBITURATES NEGATIVE (NEGATIVE); COCAINE NEGATIVE (NEGATIVE); METHADONE NEGATIVE (NEGATIVE); OXCYCODONE NEGATIVE (NEGATIVE); TETRAHYDROCANNABIONOL NEGATIVE (NEGATIVE); TRICYLIC ANTIDEPRESSANTS NEGATIVE (NEGATIVE); URINE BACTERIA RARE hpf; URINE SQUAMOUS EPITHELIAL CELL FEW EPI/hpf (0-FEW)
[2019-04-18] MEDS ORDERED: CEPHALEXIN500 M1 PO (12:45)
[2019-04-18 13:02] VITALS: BP 152/80
== END 2019-04-18 13:05 | disposition home or self-care (01) ==
LOC: ED 10:39
PROVIDERS: Emergency Medicine
DX: N39.0 Urinary tract infection, site not specified (principal); B96.20 Unspecified Escherichia coli [E. coli] as the cause of diseases classified elsewhere; F19.10 Other psychoactive substance abuse, uncomplicated; J44.9 Chronic obstructive pulmonary disease, unspecified; F17.200 Nicotine dependence, unspecified, uncomplicated

== ENCOUNTER 2019-06-08 13:17 | Emergency (ER) | payer MEDICARE, MEDICAID ==
[~2019-06-08] VITALS: Ht 157.5 cm; Wt 45.0 kg
[~2019-06-08 13:17] MED LIST changes: +CEPHALEXIN500 M1 PO; +OLANZAPINE7.5 MG PO; +QUETIAPINE FUM150 MG PO; +TRAZODONE HYDR150 MG PO
[2019-06-08] MEDS ORDERED: MOTRIN400 MG PO (14:22)
[2019-06-08 14:25] VITALS: BP 131/77
== END 2019-06-08 14:25 | disposition home or self-care (01) ==
LOC: ED 13:17
DX: M19.012 Primary osteoarthritis, left shoulder (principal); J44.9 Chronic obstructive pulmonary disease, unspecified; F17.210 Nicotine dependence, cigarettes, uncomplicated

== ENCOUNTER 2020-01-10 | Emergency (ER) | payer MEDICARE, MEDICAID ==
[2020-01-10 18:35] LABS: HEMOGLOBIN 15.7 g/dl (12.0-16.0); IMMATURE GRANULOCYTES 0.1 % (0.0-5.0); MEAN CELL VOLUME 95.1 fL CALC (80.0-100.0); MEAN CORPUSCULAR HGB 33.2 pG CALC (26.0-32.0); MEAN CORPUSCULAR HGB CONC 34.9 g/dL CAL (32.0-36.0); NEUT# 4.14 thou/uL (2.00-7.15); RED BLOOD COUNT 4.73 mill/uL (4.20-5.60); RED CELL DISTRI WIDTH 15.3 % (11.5-15.5)
[2020-01-10 18:53] LABS: ALBUMIN 4.1 g/dL (3.2-5.0); ALKALINE PHOSPHATASE 66 u/l (38-126); ANION GAP 11 (6-22 (CALC)); BUN 7 mg/dL (7-17); BUN/CREATININE RATIO 13 (12-20 (CALC)); CARBON DIOXIDE 23 mmol/l (22-30); CHLORIDE 108 mmol/l (95-108); CREATININE 0.6 mg/dL (0.5-1.0); GFR > 60 ML/MIN (>=60 (CALC)); GFR FOR AFR.AMER. > 60 ML/MIN (>=60 (CALC)); LIPASE 97 u/l (23-300); POTASSIUM 3.7 mmol/l (3.5-5.1); SGOT/AST 26 u/l (14-36); SODIUM 139 mmol/l (137-146); TOTAL PROTEIN 6.8 g/dL (6.3-8.2)
[2020-01-10 19:05] LABS: BILIRUBIN, TOTAL 0.3 mg/dL (0.0-1.4)
[2020-01-10 19:06] LABS: URINE BILIRUBIN - DIPSTICK NEGATIVE (NEGATIVE); URINE BLOOD DIPSTICK NEGATIVE (NEGATIVE); URINE COLOR YELLOW; URINE GLUCOSE - DIPSTICK NEGATIVE (NEGATIVE); URINE KETONE NEGATIVE (NEGATIVE); URINE LEUK ESTERASE NEGATIVE (NEGATIVE); URINE NITRITE - DIPSTICK NEGATIVE (Negative); URINE PROTEIN - DIPSTICK NEGATIVE (NEG-TRACE); URINE UROBILINOGEN - DIPSTICK 0.2 E.U./dL (0.2)
[2020-01-10 19:08] LABS: BARBITURATES NEGATIVE (NEGATIVE); COCAINE NEGATIVE (NEGATIVE); METHADONE NEGATIVE (NEGATIVE); OXCYCODONE NEGATIVE (NEGATIVE); TETRAHYDROCANNABIONOL NEGATIVE (NEGATIVE); TRICYLIC ANTIDEPRESSANTS NEGATIVE (NEGATIVE)
[2020-01-10] MEDS ORDERED: PROVENTIL108 MCG/AC IN (20:19)
[2020-01-10] MEDS ORDERED: TRAMADOL HYDROC50 MG PO (20:19)
[2020-01-11] MEDS ORDERED: PROVENTIL108 MCG/AC IN (16:06)
== END 2020-01-10 20:34 | disposition home or self-care (01) ==
PROVIDERS: Family Medicine
DX: R10.31 Right lower quadrant pain (principal); J44.9 Chronic obstructive pulmonary disease, unspecified; F17.210 Nicotine dependence, cigarettes, uncomplicated
CPT/HCPCS: Q9967

== ENCOUNTER 2020-04-01 12:59 | Emergency (ER) | payer MEDICARE, MEDICAID ==
[~2020-04-01] VITALS: Ht 157.5 cm; Wt 51.0 kg
[~2020-04-01 12:59] MED LIST changes: +PROVENTIL108 MCG/AC IN; +TRAMADOL HYDROC50 MG PO
[2020-04-01 14:11] LABS: HEMATOCRIT 43.7 % (37.0-47.0); HEMOGLOBIN 14.8 g/dl (12.0-16.0); IMMATURE GRANULOCYTES 0.1 % (0.0-5.0); MEAN CELL VOLUME 100.7 fL CALC (80.0-100.0); MEAN CORPUSCULAR HGB 34.1 pG CALC (26.0-32.0); MEAN CORPUSCULAR HGB CONC 33.9 g/dL CAL (32.0-36.0); NEUT# 3.88 thou/uL (2.00-7.15); RED BLOOD COUNT 4.34 mill/uL (4.20-5.60); RED CELL DISTRI WIDTH 15.5 % (11.5-15.5)
[2020-04-01 15:04] LABS: ALBUMIN 3.8 g/dL (3.2-5.0); ALKALINE PHOSPHATASE 63 u/l (38-126); ANION GAP 10 (6-22 (CALC)); BUN 8 mg/dL (7-17); BUN/CREATININE RATIO 14 (12-20 (CALC)); CARBON DIOXIDE 24 mmol/l (22-30); CHLORIDE 103 mmol/l (95-108); CREATININE 0.5 mg/dL (0.5-1.0); GFR > 60 ML/MIN (>=60 (CALC)); GFR FOR AFR.AMER. > 60 ML/MIN (>=60 (CALC)); POTASSIUM 3.5 mmol/l (3.5-5.1); SODIUM 133 mmol/l (137-146); TOTAL PROTEIN 6.3 g/dL (6.3-8.2)
[2020-04-01 15:09] LABS: BILIRUBIN, TOTAL 0.8 mg/dL (0.0-1.4); SGOT/AST 49 u/l (14-36)
[2020-04-01 15:36] LABS: INTERNATIONAL NORMALIZED RATIO 0.9 RATIO (0.7-1.3); PROTHROMBIN TIME 9.4 SECONDS (9.0-12.5)
[2020-04-01 17:08] VITALS: BP 137/83
== END 2020-04-01 17:24 ==
LOC: ED 12:59
PROVIDERS: Student in an Organized Health Care Education/Training Program
DX: I77.9 Disorder of arteries and arterioles, unspecified (principal); L03.113 Cellulitis of right upper limb; J44.9 Chronic obstructive pulmonary disease, unspecified; F17.210 Nicotine dependence, cigarettes, uncomplicated; F15.90 Other stimulant use, unspecified, uncomplicated

== ENCOUNTER 2020-06-01 08:23 | Emergency (ER) | payer MEDICARE, MEDICAID ==
[~2020-06-01] VITALS: Ht 157.5 cm; Wt 56.8 kg
[2020-06-01 09:12] LABS: HEMATOCRIT 46.1 % (37.0-47.0); HEMOGLOBIN 15.6 g/dl (12.0-16.0); IMMATURE GRANULOCYTES 0.2 % (0.0-5.0); MEAN CELL VOLUME 98.1 fL CALC (80.0-100.0); MEAN CORPUSCULAR HGB 33.2 pG CALC (26.0-32.0); MEAN CORPUSCULAR HGB CONC 33.8 g/dL CAL (32.0-36.0); NEUT# 3.26 thou/uL (2.00-7.15); RED BLOOD COUNT 4.7 mill/uL (4.20-5.60); RED CELL DISTRI WIDTH 13.2 % (11.5-15.5)
[2020-06-01 09:30] LABS: ALBUMIN 4.3 g/dL (3.2-5.0); ALKALINE PHOSPHATASE 73 u/l (38-126); ANION GAP 10 (6-22 (CALC)); BILIRUBIN, TOTAL 0.7 mg/dL (0.0-1.4); BUN 9 mg/dL (7-17); BUN/CREATININE RATIO 16 (12-20 (CALC)); CARBON DIOXIDE 26 mmol/l (22-30); CHLORIDE 104 mmol/l (95-108); CREATININE 0.5 mg/dL (0.5-1.0); GFR > 60 ML/MIN (>=60 (CALC)); GFR FOR AFR.AMER. > 60 ML/MIN (>=60 (CALC)); SGOT/AST 25 u/l (14-36); SODIUM 136 mmol/l (137-146); TOTAL PROTEIN 6.8 g/dL (6.3-8.2)
[2020-06-01 09:31] LABS: POTASSIUM 4.3 mmol/l (3.5-5.1)
[2020-06-01 18:25] VITALS: BP 121/73
== END 2020-06-01 18:20 ==
LOC: ED 08:23
PROVIDERS: Family Medicine
DX: I77.9 Disorder of arteries and arterioles, unspecified (principal); J44.9 Chronic obstructive pulmonary disease, unspecified; F31.9 Bipolar disorder, unspecified; F17.200 Nicotine dependence, unspecified, uncomplicated
CPT/HCPCS: J1644

== ENCOUNTER 2021-03-30 10:23 | Emergency (ER) | payer MEDICARE, MEDICAID ==
[~2021-03-30] VITALS: Ht 157.5 cm; Wt 60.0 kg
[2021-03-30] MEDS ORDERED: CLEOCIN300 MG PO (10:45)
[2021-03-30] MEDS ORDERED: MOTRIN400 MG/TAB PO (10:45)
[2021-03-30 10:47] VITALS: BP 118/65
== END 2021-03-30 11:30 | disposition home or self-care (01) ==
LOC: ED 10:23
DX: K08.89 Other specified disorders of teeth and supporting structures (principal); M54.2 Cervicalgia; J44.9 Chronic obstructive pulmonary disease, unspecified; F31.9 Bipolar disorder, unspecified; F17.200 Nicotine dependence, unspecified, uncomplicated

== ENCOUNTER 2021-12-19 17:29 | Emergency (ER) | payer MEDICARE, MEDICAID ==
[~2021-12-19] VITALS: Ht 157.5 cm; Wt 56.0 kg
[2021-12-19] VITALS (10 sets, daily range): BP systolic 109–149; BP diastolic 68–97
[~2021-12-19 17:29] MED LIST changes: +MOTRIN400 MG/TAB PO
[2021-12-19 18:19] LABS: HEMATOCRIT 43.7 % (37.0-47.0); HEMOGLOBIN 14.9 g/dl (12.0-16.0); IMMATURE GRANULOCYTES 0.2 % (0.0-5.0); MEAN CELL VOLUME 100.5 fL CALC (80.0-100.0); MEAN CORPUSCULAR HGB 34.3 pG CALC (26.0-32.0); MEAN CORPUSCULAR HGB CONC 34.1 g/dL CAL (32.0-36.0); NEUT# 6.18 thou/uL (2.00-7.15); RED BLOOD COUNT 4.35 mill/uL (4.20-5.60); RED CELL DISTRI WIDTH 13.7 % (11.5-15.5)
[2021-12-19 18:32] LABS: ALBUMIN 4.1 g/dL (3.2-5.0); ALKALINE PHOSPHATASE 76 u/l (38-126); ANION GAP 12 (6-22 (CALC)); BILIRUBIN, TOTAL 0.3 mg/dL (0.0-1.4); BUN 9 mg/dL (7-17); BUN/CREATININE RATIO 13 (12-20 (CALC)); CARBON DIOXIDE 28 mmol/l (22-30); CHLORIDE 98 mmol/l (95-108); CREATININE 0.7 mg/dL (0.5-1.0); GFR > 60 ML/MIN (>=60 (CALC)); GFR FOR AFR.AMER. > 60 ML/MIN (>=60 (CALC)); HCG SERUM/URINE (NEG/POS) NEGATIVE (NEGATIVE); LIPASE 71 u/l (23-300); SGOT/AST 22 u/l (14-36); SODIUM 134 mmol/l (137-146); TOTAL PROTEIN 6.8 g/dL (6.3-8.2)
[2021-12-19 18:56] LABS: URINE BILIRUBIN - DIPSTICK NEGATIVE (NEGATIVE); URINE BLOOD DIPSTICK NEGATIVE (NEGATIVE); URINE COLOR YELLOW; URINE GLUCOSE - DIPSTICK NEGATIVE (NEGATIVE); URINE KETONE NEGATIVE (NEGATIVE); URINE LEUK ESTERASE NEGATIVE (NEGATIVE); URINE PROTEIN - DIPSTICK NEGATIVE (NEG-TRACE); URINE SPECIFIC GRAVITY 1.025
[2021-12-19 19:00] LABS: URINE NITRITE - DIPSTICK POSITIVE (Negative)
[2021-12-19 19:07] LABS: URINE BACTERIA MANY hpf; URINE RBC 0-2 RBC/hpf (0-5); URINE SQUAMOUS EPITHELIAL CELL MODERATE EPI/hpf (0-FEW)
[2021-12-19] MEDS ORDERED: KEFLEX500 MG PO (19:40)
[2021-12-19] MEDS ORDERED: SENNOSIDES (SE8.6 MG PO (19:40)
[2021-12-19] MEDS ORDERED: MIRALAX17 GM PO (19:40)
[2021-12-19] MEDS ORDERED: ONDANSETRON4 MG PO (19:40)
== END 2021-12-19 19:59 | disposition home or self-care (01) ==
LOC: ED 17:29
PROVIDERS: Nurse Practitioner
DX: N39.0 Urinary tract infection, site not specified (principal); K59.00 Constipation, unspecified; J44.9 Chronic obstructive pulmonary disease, unspecified; F31.9 Bipolar disorder, unspecified; F17.200 Nicotine dependence, unspecified, uncomplicated; B96.20 Unspecified Escherichia coli [E. coli] as the cause of diseases classified elsewhere; Z20.822 Contact with and (suspected) exposure to COVID-19

== ENCOUNTER 2021-12-28 16:30 | Emergency (ER) | payer MEDICARE, MEDICAID ==
[~2021-12-28] VITALS: Ht 157.5 cm; Wt 56.8 kg
[2021-12-28] VITALS (14 sets, daily range): BP systolic 152–178; BP diastolic 89–117
[~2021-12-28 16:30] MED LIST changes: +KEFLEX500 MG PO; +MIRALAX17 GM PO; +ONDANSETRON4 MG PO; +SENNOSIDES (SE8.6 MG PO
[2021-12-28] MEDS ORDERED: PREDNISONE20 MG PO (19:00)
[2021-12-28] MEDS ORDERED: LORTAB 5/3255 MG PO (19:00)
== END 2021-12-28 19:26 | disposition home or self-care (01) ==
LOC: ED 16:30
DX: M48.07 Spinal stenosis, lumbosacral region (principal); J44.9 Chronic obstructive pulmonary disease, unspecified; F31.9 Bipolar disorder, unspecified; F17.200 Nicotine dependence, unspecified, uncomplicated; Z86.16 Personal history of COVID-19

== ENCOUNTER 2022-02-11 20:28 | Emergency (ER) | payer MEDICARE, MEDICAID ==
[~2022-02-11] VITALS: Ht 157.5 cm; Wt 52.0 kg
[~2022-02-11 20:28] MED LIST changes: +LORTAB 5/3255 MG PO; +PREDNISONE20 MG PO
[2022-02-11 20:33] VITALS: BP 117/78
[2022-02-11 21:12] LABS: HEMATOCRIT 42.2 % (37.0-47.0); HEMOGLOBIN 14.1 g/dl (12.0-16.0); IMMATURE GRANULOCYTES 0.1 % (0.0-5.0); MEAN CORPUSCULAR HGB 33.4 pG CALC (26.0-32.0); MEAN CORPUSCULAR HGB CONC 33.4 g/dL CAL (32.0-36.0); NEUT# 4.28 thou/uL (2.00-7.15); RED BLOOD COUNT 4.22 mill/uL (4.20-5.60); RED CELL DISTRI WIDTH 13.5 % (11.5-15.5); URINE BILIRUBIN - DIPSTICK NEGATIVE (NEGATIVE); URINE BLOOD DIPSTICK NEGATIVE (NEGATIVE); URINE COLOR YELLOW; URINE GLUCOSE - DIPSTICK NEGATIVE (NEGATIVE); URINE KETONE NEGATIVE (NEGATIVE); URINE LEUK ESTERASE NEGATIVE (NEGATIVE); URINE PROTEIN - DIPSTICK NEGATIVE (NEG-TRACE); URINE SPECIFIC GRAVITY <=1.005
[2022-02-11 21:13] LABS: URINE NITRITE - DIPSTICK NEGATIVE (Negative)
[2022-02-11 21:21] LABS: ALKALINE PHOSPHATASE 44 u/l (38-126); BILIRUBIN, TOTAL 0.2 mg/dL (0.0-1.4); BUN 8 mg/dL (7-17); BUN/CREATININE RATIO 13 (12-20 (CALC)); CHLORIDE 106 mmol/l (95-108); CPK 30 u/l (30-165); CREATININE 0.7 mg/dL (0.5-1.0); ETHYL ALCOHOL 56 mg/dl (0-30); GFR FOR AFR.AMER. > 60 ML/MIN (>=60 (CALC)); GFR OTHER RACES > 60 ML/MIN (>=60 (CALC)); POTASSIUM 3.8 mmol/l (3.5-5.1); SGOT/AST 15 u/l (14-36); SODIUM 140 mmol/l (137-146); TOTAL PROTEIN 6.4 g/dL (6.3-8.2)
[2022-02-11 21:25] LABS: ANION GAP 16 (6-22 (CALC)); CARBON DIOXIDE 22 mmol/l (22-30)
[2022-02-11] MEDS ORDERED: VOLTAREN75 MG PO (22:46)
[2022-02-11 22:47] VITALS: BP 117/78
== END 2022-02-11 22:56 | disposition home or self-care (01) ==
LOC: ED 20:28
PROVIDERS: Family Medicine
DX: R07.89 Other chest pain (principal); J44.9 Chronic obstructive pulmonary disease, unspecified; F31.9 Bipolar disorder, unspecified; F17.200 Nicotine dependence, unspecified, uncomplicated; Z86.16 Personal history of COVID-19

== ENCOUNTER 2022-02-19 20:44 | Emergency (ER) | payer MEDICARE, MEDICAID ==
[~2022-02-19] VITALS: Ht 157.5 cm; Wt 56.3 kg
[~2022-02-19 20:44] MED LIST changes: +VOLTAREN75 MG PO
[2022-02-19 21:09] VITALS: BP 134/89
[2022-02-19 21:15] VITALS: BP 126/84
[2022-02-19 21:30] VITALS: BP 130/93
[2022-02-19 21:45] VITALS: BP 118/78
[2022-02-19] MEDS ORDERED: NAPROXEN500 MG PO (21:55)
[2022-02-19 22:15] VITALS: BP 123/73
[2022-02-19 22:17] VITALS: BP 123/73
== END 2022-02-19 22:32 | disposition home or self-care (01) ==
LOC: ED 20:44
DX: S93.402A Sprain of unspecified ligament of left ankle, initial encounter (principal); J44.9 Chronic obstructive pulmonary disease, unspecified; F31.9 Bipolar disorder, unspecified; F17.210 Nicotine dependence, cigarettes, uncomplicated; W01.0XXA Fall on same level from slipping, tripping and stumbling without subsequent striking against object, initial encounter; Y92.009 Unspecified place in unspecified non-institutional (private) residence as the place of occurrence of the external cause

== ENCOUNTER 2022-04-28 09:08 | Emergency (ER) | payer MEDICARE, MEDICAID ==
[2022-04-28] VITALS (12 sets, daily range): BP systolic 84–122; BP diastolic 52–76
[~2022-04-28] VITALS: Ht 157.5 cm; Wt 53.1 kg
[~2022-04-28 09:08] MED LIST changes: +NAPROXEN500 MG PO
[2022-04-28 09:42] LABS: HEMATOCRIT 43.2 % (37.0-47.0); HEMOGLOBIN 14.3 g/dl (12.0-16.0); IMMATURE GRANULOCYTES 0.2 % (0.0-5.0); MEAN CORPUSCULAR HGB 31.4 pG CALC (26.0-32.0); MEAN CORPUSCULAR HGB CONC 33.1 g/dL CAL (32.0-36.0); NEUT# 5.46 thou/uL (2.00-7.15); RED BLOOD COUNT 4.55 mill/uL (4.20-5.60); RED CELL DISTRI WIDTH 13.3 % (11.5-15.5)
[2022-04-28 09:47] LABS: MEAN CELL VOLUME 94.9 fL CALC (80.0-100.0)
[2022-04-28 09:51] LABS: ALBUMIN 3.9 g/dL (3.2-5.0); ALKALINE PHOSPHATASE 59 u/l (38-126); ANION GAP 13 (6-22 (CALC)); BILIRUBIN, TOTAL 0.3 mg/dL (0.0-1.4); BUN 15 mg/dL (7-17); BUN/CREATININE RATIO 15 (12-20 (CALC)); CARBON DIOXIDE 23 mmol/l (22-30); CHLORIDE 109 mmol/l (95-108); GFR FOR AFR.AMER. > 60 ML/MIN (>=60 (CALC)); GFR OTHER RACES 57 ML/MIN (>=60 (CALC)); POTASSIUM 3.4 mmol/l (3.5-5.1); SGOT/AST 14 u/l (14-36); SODIUM 141 mmol/l (137-146); TOTAL PROTEIN 6.9 g/dL (6.3-8.2)
[2022-04-28] MEDS ORDERED: PREDNISONE50 MG PO (10:16)
[2022-04-28] MEDS ORDERED: ZPAK PO (10:16)
== END 2022-04-28 12:34 | disposition home or self-care (01) ==
LOC: ED 09:08
PROVIDERS: Family Medicine
DX: J06.9 Acute upper respiratory infection, unspecified (principal); Z72.0 Tobacco use; Z20.822 Contact with and (suspected) exposure to COVID-19; R07.89 Other chest pain; R05.9 Cough, unspecified

== ENCOUNTER 2022-07-23 10:29 | Emergency (ER) | payer MEDICARE, MEDICAID ==
[~2022-07-23] VITALS: Ht 157.5 cm; Wt 60.0 kg
[2022-07-23 11:48] LABS: HEMATOCRIT 45.6 % (37.0-47.0); HEMOGLOBIN 15.1 g/dl (12.0-16.0); MEAN CORPUSCULAR HGB 31.5 pG CALC (26.0-32.0); MEAN CORPUSCULAR HGB CONC 33.1 g/dL CAL (32.0-36.0); NEUT# 3.02 thou/uL (2.00-7.15); RED BLOOD COUNT 4.8 mill/uL (4.20-5.60); RED CELL DISTRI WIDTH 14.1 % (11.5-15.5)
[2022-07-23 12:07] LABS: ALBUMIN 3.8 g/dL (3.2-5.0); ALKALINE PHOSPHATASE 54 u/l (38-126); ANION GAP 11 (6-22 (CALC)); BILIRUBIN, TOTAL 0.3 mg/dL (0.0-1.4); BUN 9 mg/dL (7-17); BUN/CREATININE RATIO 10 (12-20 (CALC)); CARBON DIOXIDE 24 mmol/l (22-30); CHLORIDE 109 mmol/l (95-108); CREATININE 0.9 mg/dL (0.5-1.0); GFR FOR AFR.AMER. > 60 ML/MIN (>=60 (CALC)); GFR OTHER RACES > 60 ML/MIN (>=60 (CALC)); POTASSIUM 3.9 mmol/l (3.5-5.1); SGOT/AST 19 u/l (14-36); SODIUM 140 mmol/l (137-146); TOTAL PROTEIN 6.4 g/dL (6.3-8.2)
[2022-07-23] MEDS ORDERED: AMOX/K CLAV875 M1 PO (13:59)
[2022-07-23] MEDS ORDERED: ZPAK PO (13:59)
[2022-07-23] MEDS ORDERED: TRAMADOL HYDROC50 M1 PO ×2 (14:01→14:06)
[2022-07-23 14:11] VITALS: BP 140/78
== END 2022-07-23 14:25 | disposition home or self-care (01) ==
LOC: ED 10:29
PROVIDERS: Family Medicine
DX: M54.2 Cervicalgia (principal); M54.6 Pain in thoracic spine; M54.50 Low back pain, unspecified; J18.9 Pneumonia, unspecified organism; J44.9 Chronic obstructive pulmonary disease, unspecified; F31.9 Bipolar disorder, unspecified; G20 Parkinson's disease; F17.210 Nicotine dependence, cigarettes, uncomplicated; Z86.16 Personal history of COVID-19

== ENCOUNTER 2022-09-30 16:09 | Observation (INO) | payer MEDICARE, MEDICAID ==
[~2022-09-30] VITALS: Ht 157.5 cm; Wt 55.0 kg
[2022-09-30] VITALS (31 sets, daily range): BP systolic 79–146; BP diastolic 47–81
[~2022-09-30 16:09] MED LIST changes: +TRAMADOL HYDROC50 M1 PO
[2022-09-30 16:31] LABS: BASO% 0.5 % (0-3); EOS% 3.8 % (0-8); HEMATOCRIT 43.3 % (37.0-47.0); HEMOGLOBIN 13.9 g/dl (12.0-16.0); IMMATURE GRANULOCYTES 0.1 % (0.0-5.0); MEAN CELL VOLUME 96.4 fL CALC (80.0-100.0); MEAN CORPUSCULAR HGB CONC 32.1 g/dL CAL (32.0-36.0); MONO% 6.6 % (2-13); NEUT# 4.98 thou/uL (2.00-7.15); RED BLOOD COUNT 4.49 mill/uL (4.20-5.60); RED CELL DISTRI WIDTH 13.9 % (11.5-15.5)
[2022-09-30] MEDS ORDERED: BUSPAR5 M1 PO (16:37)
[2022-09-30] MEDS ORDERED: UBRELVY100 MG PO (16:37)
[2022-09-30] MEDS ORDERED: ROSUVASTATIN CAL5 MG PO (16:38)
[2022-09-30] MEDS ORDERED: GABAPENTIN300 M2 PO (16:38)
[2022-09-30] MEDS ORDERED: IMITREX100 MG PO (16:39)
[2022-09-30] MEDS ORDERED: AMANTADINE100 MG PO (16:39)
[2022-09-30] MEDS ORDERED: LOPRESSOR25 M1 PO (16:40)
[2022-09-30] MEDS ORDERED: CYCLOBENZAPRINE10 MG PO (16:40)
[2022-09-30] MEDS ORDERED: TOPIRAMATE100 MG PO (16:40)
[2022-09-30] MEDS ORDERED: UBRELVY50 MG PO (16:41)
[2022-09-30] MEDS ORDERED: TRELEGY ELLIPTA1 AER IN (16:42)
[2022-09-30] MEDS ORDERED: ALENDRONATE SOD70 MG PO (16:43)
[2022-09-30] MEDS ORDERED: TOPIRAMATE50 MG PO (16:44)
[2022-09-30 16:51] LABS: PROTHROMBIN TIME 10.1 SECONDS (9.0-12.5)
[2022-09-30 16:52] LABS: ALKALINE PHOSPHATASE 52 u/l (38-126); ANION GAP 9 (6-22 (CALC)); BUN 11 mg/dL (7-17); BUN/CREATININE RATIO 12 (12-20 (CALC)); CARBON DIOXIDE 20 mmol/l (22-30); CHLORIDE 115 mmol/l (95-108); CREATININE 0.9 mg/dL (0.5-1.0); GFR FOR AFR.AMER. > 60 ML/MIN (>=60 (CALC)); GFR OTHER RACES > 60 ML/MIN (>=60 (CALC)); POTASSIUM 3.9 mmol/l (3.5-5.1); SGOT/AST 23 u/l (14-36); SODIUM 140 mmol/l (137-146); TOTAL PROTEIN 6.4 g/dL (6.3-8.2)
[2022-09-30 18:49] LABS: URINE BILIRUBIN - DIPSTICK NEGATIVE (NEGATIVE); URINE BLOOD DIPSTICK NEGATIVE (NEGATIVE); URINE COLOR YELLOW; URINE GLUCOSE - DIPSTICK NEGATIVE (NEGATIVE); URINE KETONE NEGATIVE (NEGATIVE); URINE LEUK ESTERASE NEGATIVE (NEGATIVE); URINE NITRITE - DIPSTICK NEGATIVE (Negative); URINE PROTEIN - DIPSTICK NEGATIVE (NEG-TRACE); URINE SPECIFIC GRAVITY <=1.005; URINE UROBILINOGEN - DIPSTICK 0.2 E.U./dL (0.2)
[2022-10-01] VITALS (45 sets, daily range): BP systolic 83–130; BP diastolic 45–85
[2022-10-01 05:19] LABS: HEMATOCRIT 39.5 % (37.0-47.0); MEAN CELL VOLUME 95.4 fL CALC (80.0-100.0); MEAN CORPUSCULAR HGB 31.4 pG CALC (26.0-32.0); MEAN CORPUSCULAR HGB CONC 32.9 g/dL CAL (32.0-36.0); RED BLOOD COUNT 4.14 mill/uL (4.20-5.60); RED CELL DISTRI WIDTH 13.8 % (11.5-15.5)
[2022-10-01 05:47] LABS: ANION GAP 8 (6-22 (CALC)); BUN 12 mg/dL (7-17); BUN/CREATININE RATIO 14 (12-20 (CALC)); CARBON DIOXIDE 20 mmol/l (22-30); CHLORIDE 117 mmol/l (95-108); CREATININE 0.9 mg/dL (0.5-1.0); GFR FOR AFR.AMER. > 60 ML/MIN (>=60 (CALC)); GFR OTHER RACES > 60 ML/MIN (>=60 (CALC)); HDL CHOLESTEROL 55 mg/dL (>=40); SODIUM 140 mmol/l (137-146); TOTAL TRIGLYCERIDES 38 mg/dl (30-149); VLDL CHOLESTROL 8 mg/dl (1-41 (CALC))
[2022-10-01 05:54] LABS: CALCULATED LDLCHOLESTEROL 48 mg/dL (62-129 (CALC)); TOTAL CHOLESTEROL 111 mg/dl (0-199)
[2022-10-01] MEDS ORDERED: WELLBUTRIN XL300 MG PO (14:06)
[2022-10-01] MEDS ORDERED: IBUPROFEN 200200 MG PO (14:08)
[2022-10-01] MEDS ORDERED: ASPIRIN325 MG PO (14:09)
[2022-10-01] MEDS ORDERED: METAMUCIL28 % PO (14:10)
[2022-10-01] MEDS ORDERED: MIRALAX17 GM PO (14:11)
[2022-10-01] MEDS ORDERED: LINZESS72 MCG PO (14:12)
== END 2022-10-01 15:39 | disposition home or self-care (01) ==
LOC: ED 16:09 → ED-I 17:00 → ED 17:00 → ED-I 17:36 → ED 17:59 → ICU 18:00 → ED-I 21:35 → ICU 23:02
PROVIDERS: Family Medicine; Internal Medicine; ADMIT Internal Medicine; ATTEND Internal Medicine
DX: R20.0 Anesthesia of skin (principal); R53.1 Weakness; J43.9 Emphysema, unspecified; G20 Parkinson's disease; I69.992 Facial weakness following unspecified cerebrovascular disease; F41.9 Anxiety disorder, unspecified; F31.9 Bipolar disorder, unspecified; F17.200 Nicotine dependence, unspecified, uncomplicated; Z86.16 Personal history of COVID-19
CPT/HCPCS: Q9967

== ENCOUNTER 2022-11-30 20:16 | Emergency (ER) | payer MEDICARE, MEDICAID ==
[~2022-11-30 20:16] MED LIST changes: +ALENDRONATE SOD70 MG PO; +AMANTADINE100 MG PO; +ASPIRIN325 MG PO; +BUSPAR5 M1 PO; +CYCLOBENZAPRINE10 MG PO; +GABAPENTIN300 M2 PO; +IBUPROFEN 200200 MG PO; +IMITREX100 MG PO; +LINZESS72 MCG PO; +LOPRESSOR25 M1 PO; +METAMUCIL28 % PO; +ROSUVASTATIN CAL5 MG PO; +TOPIRAMATE100 MG PO; +TOPIRAMATE50 MG PO; +TRELEGY ELLIPTA1 AER IN; +UBRELVY100 MG PO; +UBRELVY50 MG PO; +WELLBUTRIN XL300 MG PO
[2022-11-30 23:27] VITALS: BP 0/0
== END 2022-11-30 23:25 | disposition left against medical advice (07) ==
LOC: ED 20:16 → LWOBS 21:17
DX: Z53.21 Procedure and treatment not carried out due to patient leaving prior to being seen by health care provider (principal)

== ENCOUNTER 2023-02-03 16:55 | Emergency (ER) | payer MEDICARE, MEDICAID ==
[~2023-02-03] VITALS: Ht 157.5 cm; Wt 48.0 kg
[2023-02-03] MEDS ORDERED: PERCOCET 5/325M1 TAB PO (18:18)
[2023-02-03 18:32] VITALS: BP 90/60
== END 2023-02-03 18:39 | disposition home or self-care (01) ==
LOC: ED 16:55
DX: M54.2 Cervicalgia (principal); M54.9 Dorsalgia, unspecified; J44.9 Chronic obstructive pulmonary disease, unspecified; F31.9 Bipolar disorder, unspecified; G20 Parkinson's disease; F17.200 Nicotine dependence, unspecified, uncomplicated; Z86.16 Personal history of COVID-19

== ENCOUNTER 2023-02-27 07:23 | Day surgery (SDC) | payer MEDICARE, MEDICAID ==
[~2023-02-27] VITALS: Ht 157.5 cm; Wt 50.3 kg
[~2023-02-27 07:23] MED LIST changes: +PERCOCET 5/325M1 TAB PO
[2023-02-27 08:10] VITALS: BP 123/70
== END 2023-02-27 08:45 | disposition home or self-care (01) ==
LOC: ORM 07:23
PROVIDERS: ATTEND Physical Medicine & Rehabilitation
DX: G89.4 Chronic pain syndrome (principal); Z53.9 Procedure and treatment not carried out, unspecified reason

== ENCOUNTER 2023-03-06 08:12 | Day surgery (SDC) | payer MEDICARE, MEDICAID ==
[~2023-03-06] VITALS: Ht 157.5 cm; Wt 50.3 kg
[2023-03-06 10:18] VITALS: BP 132/71
== END 2023-03-06 09:55 | disposition home or self-care (01) ==
LOC: ORM 08:12
PROVIDERS: ATTEND Physical Medicine & Rehabilitation
DX: G89.4 Chronic pain syndrome (principal); M54.16 Radiculopathy, lumbar region; M54.12 Radiculopathy, cervical region
CPT/HCPCS: J1100; Q9967

== ENCOUNTER 2024-04-26 11:44 | Emergency (ER) | payer MEDICARE, MEDICAID ==
[~2024-04-26] VITALS: Ht 157.5 cm; Wt 47.7 kg
[2024-04-26] VITALS (16 sets, daily range): BP systolic 126–163; BP diastolic 81–110
[~2024-04-26 11:44] MED LIST changes: +CVS MUCUS EXT1200 MG PO; +HYDROCO/APAP1 TA9 PO; +IBUPROFEN600 MG PO; +PROTONIX40 M2 PO; +ZOFRAN4 MG/TAB PO
[2024-04-26] MEDS ORDERED: ONDANSETRON HCl 4 MG/2 ML SDV IV ONE (12:10)
[2024-04-26] MEDS ORDERED: MORPHINE SULFATE 4 MG/ML VIAL IV ONE ×2 (12:10→15:15)
[2024-04-26 12:27] LABS: BASO% 0.3 % (0-3); EOS% 1.3 % (0-8); IMMATURE GRANULOCYTES 0.2 % (0.0-5.0); LYMPH% 31.2 % (15-41); MEAN CORPUSCULAR HGB 35.5 pG CALC (26.0-32.0); MEAN CORPUSCULAR HGB CONC 33.9 g/dL CAL (32.0-36.0); MONO% 4.6 % (2-13); NEUT# 7.25 thou/uL (2.00-7.15); NEUT% 62.4 % (42-76); RED BLOOD COUNT 3.66 mill/uL (4.20-5.60)
[2024-04-26 12:28] LABS: HEMATOCRIT 38.4 % (37.0-47.0); MEAN CELL VOLUME 104.9 fL CALC (80.0-100.0)
[2024-04-26 12:41] LABS: ALBUMIN 3.6 g/dL (3.2-5.0); ALKALINE PHOSPHATASE 53 u/l (38-126); ANION GAP 10 (6-22 (CALC)); BUN 9 mg/dL (8-23); BUN/CREATININE RATIO 15 (12-20 (CALC)); CARBON DIOXIDE 22 mmol/l (22-30); CHLORIDE 109 mmol/l (95-108); CREATININE 0.6 mg/dL (0.5-1.0); ESTIMATED GFR 101 ML/MIN (>=90 (CALC)); POTASSIUM 3.4 mmol/l (3.5-5.1); SODIUM 137 mmol/l (137-146); TOTAL PROTEIN 6.1 g/dL (6.3-8.2)
[2024-04-26 12:45] LABS: BILIRUBIN, TOTAL 0.8 mg/dL (0.02-1.3); SGOT/AST 68 u/l (9-36)
[2024-04-26] MEDS ORDERED: MOTRIN400 MG/TAB PO (14:57)
== END 2024-04-26 15:21 | disposition home or self-care (01) ==
LOC: ED 11:44
PROVIDERS: Family Medicine
DX: S40.022A Contusion of left upper arm, initial encounter (principal); R07.89 Other chest pain; M25.522 Pain in left elbow; M25.512 Pain in left shoulder; M54.2 Cervicalgia; M54.6 Pain in thoracic spine; M54.50 Low back pain, unspecified; J44.9 Chronic obstructive pulmonary disease, unspecified; F31.9 Bipolar disorder, unspecified; G20.A1 Parkinson's disease without dyskinesia, without mention of fluctuations; F02.80 Dementia in other diseases classified elsewhere, unspecified severity, without behavioral disturbance, psychotic disturbance, mood disturbance, and anxiety; F17.210 Nicotine dependence, cigarettes, uncomplicated; W18.2XXA Fall in (into) shower or empty bathtub, initial encounter; Y93.E1 Activity, personal bathing and showering; Y92.002 Bathroom of unspecified non-institutional (private) residence as the place of occurrence of the external cause; Z86.16 Personal history of COVID-19